=== PATIENT | male | born 1980 | race Caucasian/White ===

== ENCOUNTER 2023-11-26 13:47 | Emergency (ER) | payer SELFPAY ==
[~2023-11-26] VITALS: Ht 177.8 cm; Wt 95.5 kg
[2023-11-26 13:50] VITALS: TEMP 98.6
[2023-11-26] MEDS ORDERED: CEPHALEXIN500 M1 PO (14:46)
[2023-11-26 15:07] VITALS: BP 149/103; PULSE 87
== END 2023-11-26 15:07 | disposition home or self-care (01) ==
LOC: COL.ER 13:47
DX: S91.011A Laceration without foreign body, right ankle, initial encounter (principal); W26.9XXA Contact with unspecified sharp object(s), initial encounter; Y92.89 Other specified places as the place of occurrence of the external cause; Y99.0 Civilian activity done for income or pay